=== PATIENT | male | born 2000 | race Caucasian/White ===

== ENCOUNTER 2023-12-15 07:32 | Day surgery (SDC) | payer BC ==
[~2023-12-15] VITALS: Ht 172.7 cm; Wt 71.3 kg
[2023-12-15 08:09] VITALS: BP 152/95; PULSE 117; TEMP 98.8
[2023-12-15 08:12] VITALS: BP 152/95; PULSE 117; TEMP 98.8
[2023-12-15] MEDS ORDERED: PROAIR HFA0.09 MG/AC (08:14)
[2023-12-15] MEDS ORDERED: SINGULAIR 110 MG/TAB PO (08:14)
[2023-12-15] MEDS ORDERED: NORCO 325 MG-51 TAB PO (10:43)
[2023-12-15 11:50] VITALS: BP 146/71; PULSE 100; TEMP 98.7
[2023-12-15 12:05] VITALS: BP 128/69; PULSE 100
[2023-12-15 12:20] VITALS: BP 117/73; PULSE 100
[2023-12-15 12:30] VITALS: BP 130/68; PULSE 96
--- NOTE | 2023-12-15 12:40 | NUR ---
1150 RETURNS TO ROOM 1 PER CART. AWAKE, ALERT. HOB ELEVATED 40 DEGREES. RESP UNLABORED. ABD SOFT. INCISION X 3 SITES INTACT WITHOUT REDNESS OR DRAINAGE. REPORTS MILD DISCOMFORT. DENIES NEED FOR PAIN MED. CALL LIGHT AT SIDE. AND PARENTS IN ROOM 1158 DICHARGE INSTRUCTIONS REVIEWED. PATIENT AND VERBALIZE UNDERSTANDING. COPY PROVIDED IN DISCHARGE FOLDER 1210 TOLERATES PO JUICE AND SALTINE CRACKERS WITHOUT NAUSEA. 1220 SITS ON EDGE OF BED. DRESSES SELF, THEN AMBULATES TO BATHROOM WITH STAND BY ASSIST
== END 2023-12-15 12:40 | disposition home or self-care (01) ==
LOC: SDCO 07:32
DX: K40.90 Unilateral inguinal hernia, without obstruction or gangrene, not specified as recurrent (principal)
CPT/HCPCS: C1781; J0330; J1100; J2405; J2704; J3010; J7120